=== PATIENT | male | born 1960 | race Hispanic/Latino ===

== ENCOUNTER 2017-01-06 18:47 | Emergency (ER) | payer MEDICARE, BC ==
[~2017-01-06 18:47] MED LIST: CALCIUM CHLORIDE 100 MG/ML VIAL IV ONE; Sodium Bicarbonate (8.4%) 50 Meq Syringe ONE
[2017-01-06 19:03] VITALS: RESP 22; O2SAT 85
[2017-01-06 19:31] VITALS: PULSE 0
--- NOTE | 2017-01-06 19:51 | C.PDOC ---
History Of Present Illness Pt was seen immediately upon arrival. Pt apparently received dialysis today. After returning home he c/o SOB and collapsed. Chief Complaint (Nursing): Cardiac Arrest History Per: Patient, EMS Reason For Code Blue: Full Arrest Circumstances: Brought To ED By EMS Arrest Witnessed By: Family CPR Initiated Prior To MD Arrival?: Yes Down-Time Before ACLS: Mins Treatment Initiated Prior To MD Arrival: Yes: CPR, BVM Ventilations, Intubation , Defibrillation, IVF, ACLS Medication Initiation, Other (IO Access) Medications Given Prior To MD Arrival: Yes: Epinephrine, Sodium Bicarb, Other ( Amiodarone) - Initial Findings Mentation: Unresponsive Respirations: None (Assisted) Pulse: None Rhythm: V-Fib Past Medical History Reviewed: Historical Data, Nursing Documentation, Vital Signs Vital Signs: Last Vital Signs Temp Pulse 0 L 01/06/17 18:52 Resp 22 01/06/17 18:52 BP Pulse Ox 85 L 01/06/17 18:52 - Medical History PMH: Diabetes, HTN, End Stage Renal Disease, Chronic Kidney Disease - [facility] Procedures DETACHMENT AT RIGHT 5TH TOE, COMPLETE, OPEN APPROACH (10/01/15) PERFORMANCE OF URINARY FILTRATION, MULTIPLE (10/01/15) Family History: States: Unknown Family Hx - Social History Hx Alcohol Use: No Hx Substance Use: No - Immunization History Hx Tetanus Toxoid Vaccination: No Hx Influenza Vaccination: No Hx Pneumococcal Vaccination: No Review Of Systems Review Of Systems: ROS cannot be obtained secondary to pt's inabilty to answer questions. Physical Exam - Physical Exam Appears: Chronically Ill, Other (Unresponsive) Skin: Dry Head: Atraumatic Eye(s): bilateral: Abnormal Pupil (fixed and mid-dilated) Oral Mucosa: Other (ETT in place) Neck: Normal ROM, No Midline Cervical Tenderness, No Step Off Deformity, Supple Chest: Symmetrical, No Deformity Cardiovascular: Other (No heart sounds) Respiratory: Other (equal breath sounds with bagging) Extremity: Other (IO in right proximal humerus) Neurological/Psych: No Response To Commands Pain Response: No Response To Pain ED Course And Treatment - CT Scan/US Limited bedside echocardiogram Other Rad Studies (CT/US): U/S Performed By [place] CT/US Interpretation: No cardiac motion. Progress Note: ACLS protocol was continued in the ED, but pulse was never regained. Progress - Interventions Interventions:: Observation, Intravenous fluid, Oxygen - Medications Administered Intravenous: Other (Epinephrine. Atropine. Sodium Bicarb. Calcium Chloride. ) - Data Reviewed Data Reviewed: Old records - Patient Status Patient status: - Critical Care Citical Care: Excluding Proc Time Critical Care Time: 60 minutes - Continuity of Care Discussed patient case with:: Family-HIPPA compliant, ED Nurse, PMD (Giacomo Bui) Disposition - Disposition Disposition: WITH WITHOUT AUTOPSY Disposition Time: 19:24 Condition: - Clinical Impression Clinical Impression: Cardiac arrest
== END 2017-01-06 23:19 ==
LOC: C.ER 18:47
DX: I46.9 Cardiac arrest, cause unspecified (principal)
CPT/HCPCS: 82948; 92950; 99285; J0171